=== PATIENT | female | born 1970 | race Caucasian/White ===

== ENCOUNTER 2022-07-01 12:06 | Emergency (ER) | payer MEDICAID ==
[~2022-07-01] VITALS: Ht 167.6 cm; Wt 79.0 kg
[2022-07-01] MEDS ORDERED: KETOROLAC 60MG/2ML VIAL IM STA (15:02)
[2022-07-01] MEDS ORDERED: BACITRACIN ZINC OINT UDPKT TOP ONE ×2 (15:15→17:00)
[2022-07-01] MEDS ORDERED: TETANUS, DIPHTHERIA, PERTUSSIS VAC/PF 0.5ML (>10YR OLD) IM ONE (15:15)
[2022-07-01] MEDS ORDERED: AMOXICILLIN/POTASSIUM CLAVULANATE 875/125MG TAB PO ONE (15:15)
[2022-07-01] MEDS ORDERED: LIDOCAINE HCL/EPINEPHRINE 1%-EPI 1:100,000 20 ML VIAL INFIL ONE (15:15)
[2022-07-01] MEDS ORDERED: LIDOCAINE HCL/EPINEPHRINE 1%-EPI 1:100,000 10 ML VIAL INFIL NR (15:45)
[2022-07-01 15:56] VITALS: BP 165/80
[2022-07-01] MEDS ORDERED: LIDOCAINE HCL/EPINEPHRINE 1%-EPI 1:100,000 30 ML VIAL INFIL NR (16:00)
[2022-07-01] MEDS ORDERED: HYDR-4001 PO (17:30)
[2022-07-01] MEDS ORDERED: NAPR-681 PO (17:30)
[2022-07-01] MEDS ORDERED: AMOX1TAB16 PO (17:30)
== END 2022-07-01 17:50 | disposition home or self-care (01) ==
LOC: ER 12:06 → EDBD 12:06 → ER 17:50
DX: S51.851A Open bite of right forearm, initial encounter (principal); W54.0XXA Bitten by dog, initial encounter; Y93.89 Activity, other specified; Y92.89 Other specified places as the place of occurrence of the external cause; Y99.8 Other external cause status; Z98.890 Other specified postprocedural states
CPT/HCPCS: 12004; 73090; 90471; 90715; 96372; 99284; J1885; Z7610; J3490

== ENCOUNTER 2022-07-05 13:40 | Emergency (ER) | payer MEDICAID ==
[~2022-07-05] VITALS: Ht 167.6 cm; Wt 65.0 kg
[~2022-07-05 13:40] MED LIST: AMOX1TAB16 PO; HYDR-4001 PO; NAPR-681 PO
[2022-07-05 13:55] VITALS: BP 126/72
== END 2022-07-05 16:32 | disposition home or self-care (01) ==
LOC: ER 13:40
DX: S51.811D Laceration without foreign body of right forearm, subsequent encounter (principal); X58.XXXD Exposure to other specified factors, subsequent encounter; Z98.890 Other specified postprocedural states
CPT/HCPCS: 99281; Z7610

== ENCOUNTER 2022-07-07 15:09 | Emergency (ER) | payer MEDICAID ==
[~2022-07-07] VITALS: Ht 162.6 cm; Wt 77.0 kg
[2022-07-07 15:13] VITALS: BP 121/77
[2022-07-07] MEDS ORDERED: BACITRACIN ZINC OINT UDPKT TOP ONE (15:45)
== END 2022-07-07 16:22 | disposition home or self-care (01) ==
LOC: ER 15:09
DX: S51.811D Laceration without foreign body of right forearm, subsequent encounter (principal); Z98.890 Other specified postprocedural states; Z48.00 Encounter for change or removal of nonsurgical wound dressing; X58.XXXD Exposure to other specified factors, subsequent encounter
CPT/HCPCS: 99283

== ENCOUNTER 2022-07-12 17:08 | Emergency (ER) | payer MEDICAID ==
[~2022-07-12] VITALS: Ht 162.6 cm; Wt 73.6 kg
[2022-07-12 17:29] VITALS: BP 140/79
[2022-07-12] MEDS ORDERED: BACITRACIN ZINC OINT UDPKT TOP ONE (22:00)
== END 2022-07-12 22:25 | disposition home or self-care (01) ==
LOC: ER 17:08
DX: S51.811D Laceration without foreign body of right forearm, subsequent encounter (principal); X58.XXXD Exposure to other specified factors, subsequent encounter; Z98.890 Other specified postprocedural states
CPT/HCPCS: 99281; Z7610